=== PATIENT | female | born 1945 | race Asian ===

== ENCOUNTER → 2017-03-10 | Outpatient (CLI) | payer MEDICARE, BC ==
[~2017-03-10] MED LIST: ZOCOR 40MG40 MG PO; ZOLOFT 50MG50 MG PO
== END ==
LOC: MC.RAD 09:00
DX: Z12.31 Encounter for screening mammogram for malignant neoplasm of breast (principal)

== ENCOUNTER 2017-06-17 09:37 | Emergency (ER) | payer MEDICARE, BC ==
[~2017-06-17] VITALS: Ht 170.2 cm; Wt 62.7 kg
[2017-06-17 09:43] VITALS: TEMP 96.6
[2017-06-17] MEDS ORDERED: PREDNISONE20 MG PO (10:48)
[2017-06-17] MEDS ORDERED: VALTREX1 GM PO (10:48)
[2017-06-17] MEDS ORDERED: LACRI-LUBE1 OIN OS (10:48)
[2017-06-17 10:55] VITALS: BP 141/67; PULSE 75
== END 2017-06-17 11:00 | disposition home or self-care (01) ==
LOC: COL.ER 09:37
DX: G51.0 Bell's palsy (principal)
CPT/HCPCS: J7512

== ENCOUNTER → 2019-04-12 | Outpatient (CLI) | payer MEDICARE, BC ==
[~2019-04-12] MED LIST changes: +LACRI-LUBE1 OIN OS; +PREDNISONE20 MG PO; +VALTREX1 GM PO
== END ==
LOC: MC.RAD 10:23
DX: Z12.31 Encounter for screening mammogram for malignant neoplasm of breast (principal)

== ENCOUNTER → 2020-04-26 | Outpatient (CLI) | payer MEDICARE, BC | LOC: COL.RAD 14:23 | DX: M50.120 Mid-cervical disc disorder, unspecified level (principal) ==

== ENCOUNTER → 2021-04-09 | Outpatient (CLI) | payer MEDICARE, BC ==
[~2021-04-09] VITALS: Ht 170.2 cm; Wt 60.0 kg
[~2021-04-09] MED LIST changes: +COZAAR100 MG PO; +DIOVAN320 MG PO; +NORVASC2.5 MG PO; +PRAVACHOL 40MG40 MG PO
[2021-04-09 06:49] VITALS: BP 154/74; PULSE 62; TEMP 97.6
[2021-04-09 07:42] VITALS: BP 147/73; PULSE 94
[2021-04-09 07:43] VITALS: BP 161/67; PULSE 91
[2021-04-09 07:44] VITALS: BP 166/71; PULSE 85
== END ==
LOC: COL.CARD 05:45
DX: R07.9 Chest pain, unspecified (principal)
CPT/HCPCS: A9500; J2785

== ENCOUNTER → 2023-08-10 | Outpatient (CLI) | payer MEDICARE | LOC: MC.RAD 07:26 | DX: Z12.31 Encounter for screening mammogram for malignant neoplasm of breast (principal) ==